=== PATIENT | female | born 1975 | race Caucasian/White ===

== ENCOUNTER 2018-06-22 20:53 | Emergency (ER) | payer MEDICAID ==
[~2018-06-22] VITALS: Ht 154.9 cm; Wt 74.0 kg
[~2018-06-22 20:53] MED LIST: METF500T17 PO
[2018-06-22 20:54] VITALS: BP 132/80
[2018-06-22] MEDS ORDERED: KETOROLAC 30 MG/1 ML IM ONE (22:00)
[2018-06-22] MEDS ORDERED: DIAZEPAM 5 MG TABLET PO ONE (22:00)
[2018-06-22] MEDS ORDERED: DIAZEPAM 5 MG TABLET ONE (22:02)
[2018-06-22] MEDS ORDERED: KETOROLAC 30 MG/1 ML ONE (22:02)
== END 2018-06-22 23:08 | disposition home or self-care (01) ==
LOC: ED 22:42
DX: S39.012A Strain of muscle, fascia and tendon of lower back, initial encounter (principal); E78.00 Pure hypercholesterolemia, unspecified; E11.9 Type 2 diabetes mellitus without complications; K80.20 Calculus of gallbladder without cholecystitis without obstruction; X50.9XXA Other and unspecified overexertion or strenuous movements or postures, initial encounter; Y93.89 Activity, other specified; Y99.8 Other external cause status; Y92.009 Unspecified place in unspecified non-institutional (private) residence as the place of occurrence of the external cause
CPT/HCPCS: 72110; 96372; 99284; J1885

== ENCOUNTER 2019-02-27 21:47 | Emergency (ER) | payer MEDICAID ==
[~2019-02-27] VITALS: Ht 177.8 cm; Wt 70.5 kg
[~2019-02-27 21:47] MED LIST changes: +HYDR-3240 PO
[2019-02-27 21:54] VITALS: BP 143/87
[2019-02-27 22:55] LABS: BASOPHILS # (AUTO) 0.02 x10^3/uL (0-0.1); BASOPHILS % (AUTO) 0 % (0-1); EOSINOPHILS # (AUTO) 0.06 x10^3/uL (0-0.4); EOSINOPHILS % (AUTO) 1 % (1-7); LYMPHOCYTES # (AUTO) 1.91 x10^3/uL (1-3.4); LYMPHOCYTES % (AUTO) 15 % (22-44); MD NO; MEAN CORPUSCULAR HEMOGLOBIN 27.6 pg (27.0-34.8); MEAN CORPUSCULAR HGB CONC 32.6 g/dL (32.4-35.8); MEAN CORPUSCULAR VOLUME 84.7 fL (80-100); MONOCYTES # (AUTO) 0.66 x10^3/uL (0.2-0.8); MONOCYTES % (AUTO) 5 % (2-9); NEUTROPHILS # (AUTO) 10.15 x10^3/uL (1.8-6.8); NEUTROPHILS % (AUTO) 79 % (42-75); PLATELET COUNT 239 x10^3/uL (130-400); RED BLOOD COUNT 4.94 x10^6/uL (3.82-5.3); RED CELL DISTRIBUTION WIDTH 13.6 % (9.6-15.2)
[2019-02-27] MEDS ORDERED: ACETAMINOPHEN 325 MG TABLET ONE (22:57)
[2019-02-27] MEDS ORDERED: ONDANSETRON ODT 4 MG ONE (22:57)
[2019-02-27] MEDS ORDERED: ONDANSETRON ODT 4 MG PO ONE (23:00)
[2019-02-27] MEDS ORDERED: ACETAMINOPHEN 325 MG TABLET PO ONE (23:00)
--- NOTE | 2019-02-27 23:00 | NUR ---
PT MEDICATED PER EMAR. PT UPDATED TO POC (US/RECHECK/DISPO) AND DEMONSTRATES UNDERSTANDING.
[2019-02-27 23:05] LABS: ALBUMIN 3.6 g/dL (3.4-5.0); ANION GAP 8 mmol/L (5-15); CALCIUM 9.1 mg/dL (8.5-10.1); CHLORIDE 105 mmol/L (98-107); CREATININE 0.76 mg/dL (0.55-1.02)
--- NOTE | 2019-02-28 00:50 | NUR ---
PT REPORTS IMPROVEMENT IN PAIN WITH MEDICATIONS. DC EDUCATION PROVIDED, PT DEMONSTRATES UNDERSTANDING. PT AMBULATED STEADILY TO DC WITH RN
== END 2019-02-28 00:52 | disposition home or self-care (01) ==
LOC: ED 23:24
DX: N61.0 Mastitis without abscess (principal); R07.89 Other chest pain; E78.00 Pure hypercholesterolemia, unspecified; I10 Essential (primary) hypertension; E11.9 Type 2 diabetes mellitus without complications; Z87.891 Personal history of nicotine dependence
CPT/HCPCS: 36415; 76641; 80048; 82040; 85025; 87070; 87077; 87147; 87186; 87205; 99284; Q0162

== ENCOUNTER 2020-06-30 14:45 | Emergency (ER) | payer MEDICAID ==
[~2020-06-30] VITALS: Ht 154.9 cm; Wt 74.3 kg
--- NOTE | 2020-06-30 15:28 | NUR ---
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
--- NOTE | 2020-06-30 15:33 | NUR ---
Pt placed in gown, positioned for comfort in bed. Pt c/o L lower back pain x1 month intermittently, constantly over the last 2 weeks. Pt denies any known injury. No neuro defecits. Frieda LEIVA at bedside to evaluate pt.
[2020-06-30] MEDS ORDERED: DIAZEPAM 5 MG TABLET ONE (15:42)
[2020-06-30] MEDS ORDERED: KETOROLAC 30 MG/1 ML ONE (15:42)
[2020-06-30] MEDS ORDERED: OXYcodone/APAP 5/325MG TABLET ONE (15:42)
--- NOTE | 2020-06-30 15:49 | NUR ---
Pt medicated per MAR, denies other needs.
[2020-06-30] MEDS ORDERED: OXYcodone/APAP 5/325MG TABLET PO ONE (16:00)
[2020-06-30] MEDS ORDERED: KETOROLAC 30 MG/1 ML IM ONE (16:00)
[2020-06-30] MEDS ORDERED: DIAZEPAM 5 MG TABLET PO ONE (16:00)
--- NOTE | 2020-06-30 16:00 | NUR ---
Pt to xray
[2020-06-30 16:15] LABS: ALBUMIN 3.2 g/dL (3.4-5.0); ANION GAP 6 mmol/L (5-15); CALCIUM 8.4 mg/dL (8.5-10.1); CHLORIDE 104 mmol/L (98-107)
[2020-06-30 16:23] LABS: BASOPHILS % (AUTO) 1 % (0-1); EOSINOPHILS % (AUTO) 1 % (1-7); LYMPHOCYTES % (AUTO) 25 % (22-44); MEAN CORPUSCULAR HEMOGLOBIN 27.3 pg (27.0-34.8); MEAN CORPUSCULAR HGB CONC 32.9 g/dL (32.4-35.8); MEAN PLATELET VOLUME 10.5 fL (7.4-10.4); MONOCYTES % (AUTO) 8 % (2-9); NEUTROPHILS % (AUTO) 66 % (42-75); PLATELET COUNT 211 x10^3/uL (130-400); RED BLOOD COUNT 5.08 x10^6/uL (3.82-5.3); RED CELL DISTRIBUTION WIDTH 13.7 % (9.6-15.2)
--- NOTE | 2020-06-30 16:33 | NUR ---
Pt reports pain 5/10 after medications. Pt appears much more comfortable at this time. Pt denies other needs.
[2020-06-30 16:34] LABS: MD NO
[2020-06-30 17:36] VITALS: BP 114/72
--- NOTE | 2020-06-30 17:36 | NUR ---
Frieda LEIVA at bedside to discuss POC with pt.
== END 2020-06-30 18:01 | disposition home or self-care (01) ==
LOC: ED 17:51
DX: S39.012A Strain of muscle, fascia and tendon of lower back, initial encounter (principal); M54.42 Lumbago with sciatica, left side; E11.65 Type 2 diabetes mellitus with hyperglycemia; I10 Essential (primary) hypertension; E78.00 Pure hypercholesterolemia, unspecified; Z87.891 Personal history of nicotine dependence; X58.XXXA Exposure to other specified factors, initial encounter; Y93.89 Activity, other specified; Y92.89 Other specified places as the place of occurrence of the external cause; Y99.8 Other external cause status
CPT/HCPCS: 36415; 72110; 80048; 82040; 84703; 85025; 96372; 99284; J1885

== ENCOUNTER 2020-07-11 16:20 | Emergency (ER) | payer MEDICAID ==
[~2020-07-11] VITALS: Ht 154.9 cm; Wt 74.0 kg
--- NOTE | 2020-07-11 17:34 | NUR ---
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
--- NOTE | 2020-07-11 17:47 | NUR ---
PATIENT WALKED BACK FROM TRIAGE WITH CHIEF C/O NOBLE, DIZZINESS, NAUSEA, LEFT NECK LUMPS X3 DAYS. PATIENT STATES THAT THERE IS SWELLING BEHIND BOTH EARS. 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
[2020-07-11] MEDS ORDERED: METOCLOPRAMIDE 5 MG/ML, 2ML IVPush ONE (18:00)
[2020-07-11] MEDS ORDERED: SODIUM CHLORIDE FLUSH 10ML SYR IVF ONE (18:00)
[2020-07-11] MEDS ORDERED: SODIUM CHLORIDE 0.9% 1,000ML IVBOLUS ONE (18:00)
[2020-07-11] MEDS ORDERED: METOCLOPRAMIDE 5 MG/ML, 2ML ONE (18:18)
[2020-07-11 18:34] LABS: BASOPHILS % (AUTO) 0 % (0-1); EOSINOPHILS % (AUTO) 0 % (1-7); LYMPHOCYTES % (AUTO) 11 % (22-44); MEAN CORPUSCULAR HEMOGLOBIN 26.8 pg (27.0-34.8); MEAN CORPUSCULAR HGB CONC 32.9 g/dL (32.4-35.8); MEAN PLATELET VOLUME 10.1 fL (7.4-10.4); MONOCYTES % (AUTO) 7 % (2-9); NEUTROPHILS % (AUTO) 81 % (42-75); PLATELET COUNT 222 x10^3/uL (130-400); RED BLOOD COUNT 5.22 x10^6/uL (3.82-5.3); RED CELL DISTRIBUTION WIDTH 13.7 % (9.6-15.2)
[2020-07-11 18:35] LABS: MD NO
--- NOTE | 2020-07-11 18:35 | NUR ---
IV PLACED, 2ND BC X2 DRAWN. PT MEDICATED FOR NAUSEA/DRY HEAVES PER ERP ORDER. NS BOLUS INFUSING. PT STATES WEAKNESS AT THIS TIME. PT APPEARS UNABLE TO AMBULATE SAFELY TO PROVIDE UA. BSC IN ROOM. PT TO CT.
[2020-07-11 18:36] LABS: ALANINE AMINOTRANSFERASE 147 U/L (12-78); ALBUMIN 3.4 g/dL (3.4-5.0); ANION GAP 6 mmol/L (5-15); CALCIUM 8.8 mg/dL (8.5-10.1); CHLORIDE 102 mmol/L (98-107); CREATININE 0.66 mg/dL (0.55-1.02)
[2020-07-11 18:39] LABS: ALKALINE PHOSPHATASE 102 U/L (45-117); BILIRUBIN,TOTAL 0.9 mg/dL (0.2-1.0); TOTAL PROTEIN 7.5 g/dL (6.4-8.2)
--- NOTE | 2020-07-11 18:47 | NUR ---
Eran ayala in EDM - 07/11/20 at 1852 by PÉREZ REPORT FROM BRYAN LEWIS ASSUMING CARE OF PT AT THIS TIME.
--- NOTE | 2020-07-11 18:50 | NUR ---
REPORT TO TO, TRANSFER OF CARE AT THIS TIME.
[2020-07-11 19:07] VITALS: BP 138/82
--- NOTE | 2020-07-11 19:07 | NUR ---
PT ASSISTED TO BSC TO ATTEMPT URINE SAMPLE AT THIS TIME.
[2020-07-11] MEDS ORDERED: KETOROLAC 30 MG/1 ML ONE (19:13)
[2020-07-11 19:19] LABS: MICROSCOPIC NOT IND
[2020-07-11] MEDS ORDERED: KETOROLAC 30 MG/1 ML IVPush ONE (19:30)
--- NOTE | 2020-07-11 19:35 | NUR ---
ALL RESULTS BACK CHART UP FOR RECHECK
== END 2020-07-11 20:45 | disposition home or self-care (01) ==
LOC: ED 20:03
DX: R59.0 Localized enlarged lymph nodes (principal); R51.9 Headache, unspecified; R42 Dizziness and giddiness; R00.0 Tachycardia, unspecified; I10 Essential (primary) hypertension; E11.9 Type 2 diabetes mellitus without complications; E78.00 Pure hypercholesterolemia, unspecified
CPT/HCPCS: 36415; 70450; 80053; 81003; 83605; 84145; 85025; 93005; 96361; 96374; 96375; 99285; J1885; J2765; J7030